=== PATIENT | female | born 2005 | race Hispanic/Latino ===

== ENCOUNTER 2025-03-04 19:00 | Inpatient (IN) | payer OTHER ==
[2025-03-04 21:46] VITALS: BMI 23.2
[2025-03-04] MEDS ORDERED: Lidocaine 1% (PF) 30 ML VIAL SC PRN (22:35)
[2025-03-04] MEDS ORDERED: Carboprost 250 MCG/ML AMP IM PRN (22:35)
[2025-03-04] MEDS ORDERED: Diphenoxylate HCl/Atropine Tablet PO PRN ×2 (22:35)
[2025-03-04] MEDS ORDERED: HYDROcodone/Acetaminophen 10/325 mg Tablet PO PRN ×2 (22:35)
[2025-03-04] MEDS ORDERED: Acetaminophen 500 MG TAB PO PRN (22:35)
[2025-03-04] MEDS ORDERED: Tranexamic Acid 1,000 MG/10 ML VIAL IVP PRN (22:35)
[2025-03-04] MEDS ORDERED: hydrALAZINE 20 MG/ML VIAL SLOW IVP PRN (22:35)
[2025-03-04] MEDS ORDERED: Oxytocin 30 units/NS 500 ML 500 ML IV SCH ×2 (22:35)
[2025-03-04] MEDS ORDERED: Ondansetron PF 4 MG/2 ML Vial IVP PRN (22:35)
[2025-03-04] MEDS ORDERED: Acetaminophen 325 MG TAB PO PRN (22:35)
[2025-03-04 22:46] LABS: Hematocrit 32.0 % (34.9-44.5); Hemoglobin 10.4 g/dL (12.0-15.5); Mean Corpuscular Hemoglobin 25.4 pg (27.0-33.0); Mean Corpuscular Volume 78.0 fL (81.6-98.3); Platelet Count 219 10x3/uL (150-450); Red Blood Cell (RBC) Count 4.10 10x6/uL (3.90-5.03); White Blood Cell (WBC) Count 9.07 10x3/uL (3.5-10.5)
[2025-03-04 23:20] LABS: Syphilis Antibody Index 0.08 S/CO (<1.00 Non-Reactive)
[2025-03-04 23:36] LABS: Hep B Surf Ag - L&D Non-Reactive S/CO (NonReactive)
[2025-03-05] MEDS: fentaNYL/Ropivacaine Epidural 100 ML ONE (08:25)
[2025-03-05] MEDS ORDERED: Ondansetron PF 4 MG/2 ML Vial IVP PRN (08:28)
[2025-03-05] MEDS ORDERED: diphenhydrAMINE 50 MG/ML VIAL IVP PRN (08:28)
[2025-03-05] MEDS ORDERED: fentaNYL 2 mcg/Ropivacaine 0.2% Epidural 100 ML CADD EPIDURAL SCH (08:30)
[2025-03-05] MEDS ORDERED: Communication Order-Pharmacy FS SCH (08:30)
[2025-03-05] MEDS ORDERED: Bupivacaine 0.25% HCL 30 ML VIAL ONE (18:00)
[2025-03-05] MEDS: Ibuprofen 800 MG TAB PO PRN (18:12)
[2025-03-05] MEDS: Acetaminophen 325 MG TAB PO PRN (22:46)
[2025-03-06] MEDS ORDERED: Benzocaine-Menthol 82.5 ML CAN TOP PRN (00:08)
[2025-03-06] MEDS ORDERED: Milk Of Magnesia 30 ML UDCUP PO PRN (00:08)
[2025-03-06] MEDS ORDERED: hydrALAZINE 20 MG/ML VIAL SLOW IVP PRN (00:08)
[2025-03-06] MEDS ORDERED: Lanolin Ointment 7 GM TUBE TOP PRN (00:08)
[2025-03-06] MEDS ORDERED: Bisacodyl 10 MG SUPP PR PRN (00:08)
[2025-03-06] MEDS ORDERED: Boostrix 0.5 ML (Tdap) VIAL (>/=7 yrs of age) IM ONE (00:08)
[2025-03-06] MEDS ORDERED: Preparation H Ointment 28 GM TUBE PR PRN (00:08)
[2025-03-06] MEDS: Ibuprofen 800 MG TAB PO SCH ×2 (02:50→21:54)
[2025-03-06 05:54] LABS: Hematocrit 23.4 % (34.9-44.5); Hemoglobin 7.7 g/dL (12.0-15.5); Mean Corpuscular Hemoglobin 26.0 pg (27.0-33.0); Mean Corpuscular Volume 79.1 fL (81.6-98.3); Platelet Count 186 10x3/uL (150-450); Red Blood Cell (RBC) Count 2.96 10x6/uL (3.90-5.03); White Blood Cell (WBC) Count 20.31 10x3/uL (3.5-10.5)
[2025-03-06] MEDS: Ferrous Sulfate 325 MG TAB PO SCH (08:36)
[2025-03-06 13:14] LABS: Hematocrit 22.5 % (34.9-44.5); Hemoglobin 7.4 g/dL (12.0-15.5)
[2025-03-07 08:28] VITALS: BP 107/66; TEMP 98.7
== END 2025-03-07 13:30 | disposition home or self-care (01) | DRG 806 ==
LOC: CSHLD 20:59 → CSHPP 03-05 19:40
PROVIDERS: ADMIT Obstetrics & Gynecology; ATTEND Obstetrics & Gynecology
PROC: 10E0XZZ Delivery of Products of Conception, External Approach (ICD-10-PCS; principal; 2025-03-05)
PROC: 10E0XZZ Delivery of Products of Conception, External Approach (ICD-10-PCS; 2025-03-05)
PROC: 0KQM0ZZ Repair Perineum Muscle, Open Approach (ICD-10-PCS; 2025-03-05)
DX: O36.63X0 Maternal care for excessive fetal growth, third trimester, not applicable or unspecified (principal); O72.1 Other immediate postpartum hemorrhage; O70.1 Second degree perineal laceration during delivery; O34.83 Maternal care for other abnormalities of pelvic organs, third trimester; N83.202 Unspecified ovarian cyst, left side; Z37.0 Single live birth; Z3A.39 39 weeks gestation of pregnancy
CPT/HCPCS: 36415; 36416; 51702; 85027; 86780; 86850; 86900; 86901; 87340; J0665